=== PATIENT | male | born 1970 | race Caucasian/White ===

== ENCOUNTER 2018-05-18 02:19 | Observation (INO) ==
[2018-05-18] MEDS ORDERED: Acetaminophen 325 MG Tablet PO PRN ×2 (05:30→09:17)
[2018-05-18] MEDS ORDERED: Naloxone Inj 0.4 MG/ML Vial IV.PUSH PRN (05:30)
[2018-05-18] MEDS ORDERED: Vancomycin Consult Pharmacy OTHER PRN (05:30)
[2018-05-18] MEDS ORDERED: Bisacodyl 10 MG Supp RECTAL PRN (05:30)
[2018-05-18] MEDS ORDERED: Dextrose 50% in Water 50 ML Vial IV.PUSH PRN (05:34)
[2018-05-18] MEDS: Insulin NovoLOG Aspart Correctional Sugar Inj SQ SCH ×4 (08:12→20:54)
[2018-05-18] MEDS: Senna/Docusate Sodium 8.6/50 MG Tablet PO SCH ×2 (08:13→20:55)
[2018-05-18] MEDS: Heparin - SQ 10,000 UNITS/ML Vial SQ SCH ×3 (08:14→21:05)
[2018-05-18] MEDS: Piperacil/Tazo 3.375 GM Premix 50 ML IV.SIG SCH ×4 (08:15→23:17)
--- NOTE | 2018-05-18 09:43 | P.HPIM ---
History of Present Illness Primary Care Physician: No Primary Care Physician Chief Complaint: Scrotum swelling and pain History of Present Illness: 48-year-old white male with a history of GERD presents to the emergency room with a one-week history of a painful scrotal lump which he had attributed to a ingrown hair in the posterior area which has progressed and become more swollen over the past 12 hours leading him to come to emergency room for further evaluation. He also reports developing fever early this morning. He reports a few days ago he was attempting to push and express some fluid from the area however was unable to get any out. He denies any dysuria urinary frequency urgency nor any penile discharge. He does report he had similar episode a few years back which resolved on its own. Diagnosis (1) Cellulitis of scrotum: Review of Systems Constitutional: Reports as per HPI, Denies anorexia, Denies body ache(s), Reports chills, Reports fever(s), Denies headache(s) and Denies poor appetite Eyes: Denies blurry vision, Denies change in vision and Denies eye pain Ears, Nose, Mouth, and Throat: Denies abnormal hearing, Denies headache(s), Denies mouth pain, Denies nasal congestion, Denies neck pain and Denies sore throat Cardiovascular: Denies chest pain, Denies pedal edema, Denies palpitations and Denies dyspnea Respiratory: Denies cough and Denies dyspnea Gastrointestinal: Denies abdominal pain, Reports constipation, Denies loose stools, Denies nausea and Denies vomiting Genitourinary: Denies difficulty urinating, Denies genital lesions, Denies genital pain, Denies dysuria, Denies painful ejaculations, Denies penile discharge, Reports scrotal swelling, Reports testicular pain, Denies urinary frequency and Denies urinary urgency Musculoskeletal: Denies back pain, Denies myalgias, Denies arthralgias, Denies neck pain and Denies numbness Skin/Breast: Denies new lesions and Denies rash Neurologic: Denies abnormal hearing, Denies headache(s), Denies focal weakness, Denies memory loss and Denies numbness Psychiatric: Denies anxiety, Denies depression and Denies memory loss Endocrine: Denies cold intolerance, Denies heat intolerance and Denies palpitations Hematologic/Lymphatic: Denies easy bleeding and Denies easy bruising PMFSH History History Provided By: Patient Medical History Medical History GERD (gastroesophageal reflux disease) (Chronic) Surgical History Surgical History No history of previous surgery (Acute) Family History Family History Father Lung cancer Mother Lung cancer Social History Social History Substance History: Active Abuse Second Hand Smoke Exposure: No Smoking Status: Never smoker How Often Do You Have a Drink Containing Alcohol: 2 to 4 times a month Medications and Allergies Allergies Allergy/AdvReac Type Severity Reaction Status Date / Time No Known Allergies Allergy Verified 05/18/18 02:44 Home Medications Medication Instructions Recorded Confirmed Type omeprazole 20 mg PO DAILY 05/18/18 05/18/18 History Active Medications: Active Medications Acetaminophen (Tylenol) 650 mg PO Q4H PRN PRN Reason: headache/fever/pain1-4 Hydrocodone Bitart/Acetaminophen (Freeland 5/325) 1 tab PO Q6H PRN PRN Reason: pain scale 5 to 10 Last Admin: 05/18/18 08:15 Dose: 1 tab Al Hydroxide/Mg Hydroxide (Milk Of Magnesia Liq) 30 ml PO Q12H PRN PRN Reason: Mild Constipation Bisacodyl (Dulcolax Supp) 10 mg RECTAL DAILY PRN PRN Reason: SEVERE CONSITIPATION Dextrose (D50w Vial) 50 ml IV.PUSH UNSCH PRN PRN Reason: PER HYPOGLYCEMIA PROTOCOL Glucagon (Glucagon Inj) 1 mg OTHER PRN PRN PRN Reason: for Hypoglycemia Protocol Heparin Sodium (Porcine) (Heparin Inj) 5,000 units SQ Q8H ERIN Last Admin: 05/18/18 08:14 Dose: Not Given Piperacillin/Tazobactam/Dextrose (Zosyn 3.375 Gm Premix) 50 mls @ 100 mls/hr IV.SIG Q6H ERIN Last Admin: 05/18/18 08:15 Dose: Not Given Vancomycin HCl 1,500 mg/ (Sodium Chloride) 515 mls @ 250 mls/hr IV.SIG Q12H ERIN Insulin Aspart (Novolog Insulin Correctional Sugar Inj) 0 unit SQ ACHS ERIN; Protocol Last Admin: 05/18/18 08:12 Dose: 1 unit Lactulose (Lactulose Liq) 30 ml PO DAILY PRN PRN Reason: SEVERE CONSITIPATION Miscellaneous Information (Misc Pharmacy Ordered Lab Info) 0 each OTHER ONCE ONE Stop: 05/19/18 10:46 Morphine Sulfate (Morphine Inj) 2 mg IV.PUSH Q3H PRN PRN Reason: BREAKTHROUGH PAIN Naloxone HCl (Narcan Inj) 0.4 mg IV.PUSH UNSCH PRN PRN Reason: SEE LABEL COMMENTS Ondansetron HCl (Zofran Inj) 4 mg IV.PUSH Q6H PRN PRN Reason: NAUSEA OR VOMITING Pharmacy Profile Note (Vancomycin Consult Pharmacy) 1 each OTHER UNSCH PRN PRN Reason: Pharmacy to dose Senna/Docusate Sodium (Minerva-Colace) 1 tab PO BID ERIN Last Admin: 05/18/18 08:13 Dose: 1 tab Sennosides (Senokot) 17.2 mg PO Q12H PRN PRN Reason: Moderate Constipation Sodium Chloride (Ns Flush) 2 ml IV.FLUSH BID ERIN Sodium Chloride (Ns Flush) 2 ml IV.FLUSH PRN PRN PRN Reason: FLUSH AFTER USING IV ACCESS Physical Exam Vital signs: Intake & Output 05/16/18 05/17/18 05/18/18 05/19/18 06:59 06:59 06:59 06:59 Weight 125.1 kg Narrative: GENERAL: Well-nourished well-developed white male in no acute distress SKIN: Warm and dry. HEAD: Atraumatic. Normocephalic. EYES: Pupils equal and round. No scleral icterus. No injection or drainage. ENT: No nasal bleeding or discharge. Mucous membranes pink and moist. NECK: Trachea midline. No JVD. CARDIOVASCULAR: Regular rate and rhythm. RESPIRATORY: No accessory muscle use. Clear to auscultation. Breath sounds equal bilaterally. GASTROINTESTINAL: Abdomen soft, non-tender, nondistended. Hepatic and splenic margins not palpable. GENITOURINARY: Circumcised penis, scrotum swelling, left greater than the right , palpable painful elevated mass located mid posterior base aspect with no active drainage approximately 1 cm; redness surrounding the left lower posterior base area of the scrotum. MUSCULOSKELETAL: Extremities without clubbing, cyanosis, or edema. No obvious deformities. NEUROLOGICAL: Awake and alert. No obvious cranial nerve deficits. Motor grossly within normal limits. Five out of 5 muscle strength in the arms and legs. Normal speech. PSYCHIATRIC: Appropriate mood and affect; insight and judgment normal. Caprini VTE Risk Assessment Caprini VTE Risk Assessment: No/Low Risk (score <= 1) Caprini Risk Assessment Model: Point Value = 1 Point Value = 2 Point Value = 3 Point Value = 5 Age 41-60 Minor surgery BMI > 25 kg/m2 Swollen legs Varicose veins or History of unexplained or recurrent spontaneous Oral contraceptives or hormone replacement Sepsis (< 1 month) Serious lung disease, including pneumonia (< 1 month) Abnormal pulmonary function Acute myocardial infarction Congestive heart failure (< 1 month) History of inflammatory bowel disease Medical patient at bed rest Age 61-74 Arthroscopic surgery Major open surgery (> 45 min) Laparoscopic surgery (> 45 min) Malignancy Confined to bed (> 72 hours) Immobilizing plaster cast Central venous access Age >= 75 History of VTE Family history of VTE Factor V Leiden Prothrombin [id number] Lupus anticoagulant Anticardiolipin antibodies Elevated serum homocysteine Heparin-induced thrombocytopenia Other congenital or acquired thrombophilia Stroke (< 1 month) Elective arthroplasty Hip, pelvis, or leg fracture Acute spinal cord injury (< 1 month) Prophylaxis Regimen: Total Risk Factor Score Risk Level Prophylaxis Regimen 0-1 Low Early ambulation 2 Moderate Order ONE of the following: *Sequential Compression Device (SCD) *Heparin 5000 units SQ BID 3-4 Higher Order ONE of the following medications: *Heparin 5000 units SQ TID *Enoxaparin/Lovenox 40 mg SQ daily (WT < 150 kg, CrCl > 30 mL/min) *Enoxaparin/Lovenox 30 mg SQ daily (WT < 150 kg, CrCl > 10-29 mL/min) *Enoxaparin/Lovenox 30 mg SQ BID (WT < 150 kg, CrCl > 30 mL/min) AND/OR *Sequential Compression Device (SCD) 5 or more Highest Order ONE of the following medications: *Heparin 5000 units SQ TID (Preferred with Epidurals) *Enoxaparin/Lovenox 40 mg SQ daily (WT < 150 kg, CrCl > 30 mL/min) *Enoxaparin/Lovenox 30 mg SQ daily (WT < 150 kg, CrCl > 10-29 mL/min) *Enoxaparin/Lovenox 30 mg SQ BID (WT < 150 kg, CrCl > 30 mL/min) AND *Sequential Compression Device (SCD) Assessment and Plan (1) Cellulitis of scrotum: Code(s): N49.2 - Inflammatory disorders of scrotum Status: Acute Plan 48-year-old white male with history of GERD presents to the emergency room with scrotal swelling and pain Sepsis present on admission with presenting leukocytosis, tachycardia and fever with source likely scrotum cellulitis rule out underlying developing abscess. CT abdomen pelvis show inflammatory infectious process involving the scrotum without fluid collection. Will obtain a scrotum/testicle ultrasound Urology consultation Continue with IV Zosyn, vancomycin, add doxycycline to the area. Follow-up with blood cultures. Urine cultures currently pending. Presenting hyperglycemiarule out early onset of diabetes mellitus, check hemoglobin A1c, continue Accu-Cheks with sliding scale insulin. History of GERDresume home PPI Elevated blood pressure on presentation of 207/105rule out underlying hypertension, start lisinopril, IV Vasotec as needed. Continue to monitor blood pressure. DVT prophylaxisno mechanical or pharmaceutical VTE prophalaxis administered due to patient's low risk assessment of VTE. Encouraged ambulation.
[2018-05-18] MEDS: Lisinopril 5 MG Tablet PO SCH (10:34)
[2018-05-18] MEDS: Pantoprazole Sodium 20 MG DR Tablet PO SCH (10:35)
[2018-05-18] MEDS: Vancomycin Inj 1,500 MG in Sodium Chlor 0.9% Inj 500 ML IV.SIG SCH ×2 (10:36→23:17)
--- NOTE | 2018-05-18 10:56 | US ---
EXAM DATE: 05/18/2018 10:44 AM EST AGE/SEX: 48 years / Male INDICATIONS: Testicular pain and swelling. CLINICAL DATA: This is the patient's initial encounter. Patient reports that signs and symptoms have been present for 1 week and indicates a pain score of 3/10. MEDICAL/SURGICAL HISTORY: Gastroesophageal reflux disease. None. COMPARISON: No prior exams available for comparison. MEASUREMENTS: Right Testicle:__4.7 x 3.1 x 2.2 cm Left Testicle:__4.4 x 3.3 x 2.2 cm FINDINGS: RIGHT: Testicle: Homogeneous echotexture without intra or extratesticular mass. Blood flow is symmetric and within normal limits. Epididymis: Within normal limits. Hydrocele: No hydrocele. Varicocele: No evidence of varicocele. LEFT: Testicle: Homogeneous echotexture without intra or extratesticular mass. Blood flow is symmetric and within normal limits. Epididymis: Within normal limits. Hydrocele: Small hydrocele present. Varicocele: No evidence of varicocele. Scrotum: Diffuse thickening of scrotal skin. In the left perineal region, there is a palpable area. This corresponds to a 2.0 x 3.8 x 1.6 cm heter ogeneous complex area. This appears to communicates with the skin CONCLUSION: 1. The testicles appear normal. 2. Scrotal swelling. 3. 3.8 cm complex area seen in the left perineal region corresponding to the palpable area. This tara ears to communicate with the skin. An inflamed skin appendage such as a sebaceous cyst or hair follic le could have this appearance. A hematoma or abscess could have this appearance. This should be corre lated clinically. Electronically signed by: Tomy Perez MD 05/18/2018 10:55 AM EST
[2018-05-18] MEDS: Morphine Inj 4 MG/ML Vial IV.PUSH PRN ×2 (13:37→20:55)
[2018-05-19] MEDS: Piperacil/Tazo 3.375 GM Premix 50 ML IV.SIG SCH ×3 (05:51→18:34)
[2018-05-19] MEDS: Heparin - SQ 10,000 UNITS/ML Vial SQ SCH ×3 (05:51→21:59)
[2018-05-19] MEDS: Morphine Inj 4 MG/ML Vial IV.PUSH PRN ×2 (05:55→16:19)
[2018-05-19 07:00] LABS: Baso % (Auto) 0.3 % (0.0-2.0); Eos # (Auto) 0.2 th/mm3 (0.0-0.4); Eos % (Auto) 1.5 % (0.0-4.0); Hematocrit 42.1 % (39.0-51.0); Hemoglobin 14.5 gm/dL (13.0-17.0); Lymph # (Auto) 1.7 th/mm3 (1.0-4.8); Lymph % (Auto) 11.3 % (9.0-44.0); Mean Corpuscular HGB Conc 34.4 % (32.0-36.0); Mean Corpuscular Hemoglobin 30.4 pg (27.0-34.0); Mean Corpuscular Volume 88.4 fL (80.0-100.0); Mean Platelet Volume 8.4 fL (7.0-11.0); Mono # (Auto) 0.9 th/mm3 (0.0-0.9); Mono % (Auto) 6.3 % (0.0-8.0); Neut # (Auto) 12.1 th/mm3 (1.8-7.7); Neut % (Auto) 80.6 % (16.0-70.0); Platelet Count 237 th/mm3 (150-450); Red Blood Count 4.77 mil/mm3 (4.50-5.90); Red Cell Distribution Width 12.5 % (11.6-17.2); White Blood Count 14.9 th/mm3 (4.0-11.0)
[2018-05-19 07:35] LABS: Chloride 105 meq/L (98-107); Potassium 3.5 meq/L (3.5-5.1); Sodium 138 meq/L (136-145)
[2018-05-19 07:38] LABS: Calcium 8.5 mg/dL (8.5-10.1)
[2018-05-19 07:39] LABS: Anion Gap 8 meq/L (5-15); Blood Urea Nitrogen 8 mg/dL (7-18); Carbon Dioxide 24.9 meq/L (21.0-32.0); Glucose,Random 152 mg/dL (74-106)
[2018-05-19 07:42] LABS: Glomerular Filtration Rate Greater Than 89 mL/min (>89)
[2018-05-19] MEDS: Lisinopril 5 MG Tablet PO SCH (08:54)
[2018-05-19] MEDS: Senna/Docusate Sodium 8.6/50 MG Tablet PO SCH ×2 (08:54→21:58)
[2018-05-19] MEDS: Pantoprazole Sodium 20 MG DR Tablet PO SCH (08:54)
[2018-05-19] MEDS: Insulin NovoLOG Aspart Correctional Sugar Inj SQ SCH ×4 (09:01→21:53)
--- NOTE | 2018-05-19 09:50 | MB ---
cc: Memo Swainn Yani DATE: 05/19/2018 HISTORY OF PRESENT ILLNESS: Mr. Frost is a 48-year-old male who presented with scrotal swelling and induration over the past 2 days. The patient attempted to express fluid from the area in the perineal region where he noticed a small pimple. After attempt to do this, the scrotum swelled up considerably and he came to the emergency room. He states he did have a low-grade fever at the time of presentation. He denies any history of diabetes. He states he had a history of this occurring 5 years ago, which drained spontaneously and healed on its own. PAST MEDICAL HISTORY: Noted for GERD. PAST SURGICAL HISTORY: Denies any surgical history. SOCIAL HISTORY: Drinks beer on occasion. Denies drinking or using drugs. FAMILY HISTORY: Noted for lung cancer. REVIEW OF SYSTEMS: Notes scrotal swelling and edema. Low-grade temperature. Denies chest pain, shortness of breath, abdominal pain. No voiding complaints. No gait disturbances. The remaining review of systems were reviewed and were negative. PHYSICAL EXAMINATION: VITAL SIGNS: Temperature today 98.6, heart rate 88, respiratory rate 18, 158/79 is his blood pressure. GENERAL: He is an obese 48-year-old male in no acute distress. HEENT: Normocephalic, atraumatic. Pupils equal, round, regular and reactive to light. Extraocular movements intact. NECK: Supple. HEART: Regular rate and rhythm. LUNGS: Clear. ABDOMEN: Soft, nontender, nondistended. GENITOURINARY: Swollen scrotum with area of induration near the perineal area. No fluctuance is identified. EXTREMITIES: Show no cyanosis, clubbing or edema. NEUROLOGIC: Cranial nerves 2-12 are intact. LABORATORY DATA: White count 14.9, hemoglobin 14.5, hematocrit 42.1, platelet count of 237. Sodium 138, potassium 3.5, chloride 105, CO2 of 24.9, BUN of 8, creatinine 0.7, glucose of 152. Scrotal ultrasound shows scrotal swelling. Testes are normal. A 3.8 cm complex area seen in the left perineal region, corresponding to the palpable area. This appears to communicate with the skin. Inflamed skin appendage such as a sebaceous cyst or hair follicle could have this appearance. Hematoma or abscess could have this appearance. This should be correlated clinically. ASSESSMENT AND PLAN: A 48-year-old male with scrotal cellulitis and induration without definitive abscess. Recommend sitz baths with Epsom salts t.i.d. Continue IV Zosyn. Recommend evaluation for possible diabetes given elevated glucose during this admission. Can follow up as an outpatient in the office in a few weeks. Thank you for the consult and allowing me to participate in the care of this patient. Dae Swain DO SWT/sv , 08:32 AM , 08:38 AM
[2018-05-19] MEDS ORDERED: Pharmacy Ordered Lab Info OTHER ONE (10:45)
[2018-05-19] MEDS: Vancomycin Inj 1,500 MG in Sodium Chlor 0.9% Inj 500 ML IV.SIG SCH (11:38)
--- NOTE | 2018-05-19 13:39 | P.PNIM ---
Subjective Interval history: 48-year-old male who is seen examined today for follow-up on perineal/ scrotal abscess. Patient states that it has not gotten any better. He believes it is only gotten worse. Patient did have on speaker phone while speaking to him in the room. They are both concerned and would like to know exactly what the plan is, exact duration of him being in the hospital and when he can come home. I did spend extensive period of time discussing with the patient and the about his condition, plan of care, treatment plan, prognosis and best scenario for discharge planning. Patient does have uncontrolled hypertension still. Patient remains afebrile. Physical Exam Vital signs: Vital Signs 05/18/18 13:40 05/18/18 18:51 05/18/18 20:00 Temperature 99.1 F 98.7 F 98.7 F Pulse Rate 85 80 81 Respiratory Rate 14 16 17 Blood Pressure 163/81 H 171/81 H 171/91 H Pulse Oximetry 93 L 97 94 L 05/19/18 00:00 05/19/18 08:00 05/19/18 10:45 Temperature 98.6 F Pulse Rate 88 73 Respiratory Rate 18 20 20 Blood Pressure 158/79 H 184/98 H Pulse Oximetry 96 92 L 05/19/18 12:00 Temperature 99 F Pulse Rate 87 Respiratory Rate 20 Blood Pressure 144/78 H Pulse Oximetry 95 Intake & Output 05/18/18 05/19/18 05/19/18 18:59 06:59 18:59 Intake Total 2064 / 2064 665 / 665 Output Total 800 / 800 Balance 2064 -135 / -135 Weight 125.1 kg 127.51 kg Intake: IV 565 / 565 665 / 665 Zosyn 3.375 GM Premix 50 ML @ 50 / 50 150 / 150 100 mls/hr IV.SIG Q6H ERIN Rx#: [id number] Vancomycin Inj 1,500 MG In NS 515 / 515 515 / 515 Inj 500 ML @ 250 mls/hr IV.SIG Q12H ERIN Rx#:[id number] Oral 1500 / 1500 Output: Urine 800 / 800 Other: # Voids 3 Date of Last Bowel Movement 05/18/18 05/18/18 05/18/18 Weight On Admission 125.1 kg Narrative: GENERAL: Well-developed, well-nourished, in no acute distress. alert and orientated HEENT: Head is normocephalic without any lesions or masses noted. Facial features are symmetric. Eyes: Extraocular muscles are intact. Conjunctivae were clear. NECK: Supple without any masses. Trachea midline no deviation. No JVD, CARDIAC: Regular rhythm, regular rate. S1/S2 are heard. No murmurs gallops or rubs. LUNGS: Clear to auscultation bilaterally. No wheeze, rhonchi or rales. No use of accessory muscles on inspiration or expiration. ABDOMEN: Soft, nontender. Nondistended. Bowel sounds heard in all 4 quadrants. No organomegaly or masses. Negative rebound, negative guarding EXTREMITIES: No edema, pulses are equal bilaterally. No cyanosis or clubbing NEUROLOGY: Mood and affect appear appropriate. Cranial nerves II through XII grossly intact. Moving all extremities, speech is clear GENITOURINARY: Patient does have significantly enlarged scrotum. At the point of where the scrotum attaches to the perineum there is a single opening without any obvious exudates or purulence at this time. Results - Labs CBC & Chem 7: 05/19/18 05:25 05/19/18 05:25 Laboratory Results - last 24 hr 05/18/18 05/18/18 05/18/18 15:45 16:22 20:51 CBC w Diff WBC RBC Hgb Hct MCV MCH MCHC RDW Plt Count MPV Neut % (Auto) Lymph % (Auto) Wallace % (Auto) Eos % (Auto) Baso % (Auto) Neut # (Auto) Lymph # (Auto) Wallace # (Auto) Eos # (Auto) Baso # (Auto) WBC Differential Differential Comment Sodium Potassium Chloride Carbon Dioxide Anion Gap BUN Creatinine Estimated GFR POC Glucose 159 H 163 H Random Glucose Lactic Acid 1.4 Calcium 05/19/18 05/19/18 05/19/18 05:25 05:25 11:51 CBC w Diff Auto diff final WBC 14.9 H RBC 4.77 Hgb 14.5 D Hct 42.1 MCV 88.4 MCH 30.4 MCHC 34.4 RDW 12.5 Plt Count 237 MPV 8.4 Neut % (Auto) 80.6 H Lymph % (Auto) 11.3 Wallace % (Auto) 6.3 Eos % (Auto) 1.5 Baso % (Auto) 0.3 Neut # (Auto) 12.1 H Lymph # (Auto) 1.7 Wallace # (Auto) 0.9 Eos # (Auto) 0.2 Baso # (Auto) 0.0 WBC Differential . Differential Comment . Sodium 138 Potassium 3.5 Chloride 105 Carbon Dioxide 24.9 Anion Gap 8 BUN 8 Creatinine 0.77 Estimated GFR Greater than 89 POC Glucose 158 H Random Glucose 152 H Lactic Acid Calcium 8.5 Assessment and Plan - Assessment (1) Cellulitis of scrotum Code(s): N49.2 - Inflammatory disorders of scrotum Status: Inactive - Plan Sepsis, improving -Present on admission with leukocytosis, tachycardia and fever with source likely scrotum cellulitis rule out underlying developing abscess. -CT abdomen pelvis show inflammatory infectious process involving the scrotum without fluid collection. -Scrotal ultrasound showing scrotal swelling. 3.8 cm complex area is seen in the left perineal region. This appears to be communicate with the skin. Multiple etiologies were given to include inflamed skin appendage, sebaceous cyst, hair follicle, hematoma, abscess. Recommend continue to follow clinically -Urology consultation -Urology recommending at this time that nonsurgical treatment to include sitz baths, continue antibiotic treatment, discharge if clinically improved -Continue with IV Zosyn, vancomycin, doxycycline -Blood cultures are negative for 1 day -Continue pain control, scrotal elevation, ice to the area Presenting hyperglycemia Patient does have hemoglobin A1c 6.6 -Accu-Cheks with sliding scale insulin -Consult special education paraeducator Elevated blood pressure on presentation of 207/105 Continue lisinopril 5 mg daily -Vasotec as needed History of GERD resume home PPI DVT prophylaxis no mechanical or pharmaceutical VTE prophalaxis administered due to patient's low risk assessment of VTE. Encouraged ambulation.
[2018-05-19] MEDS: Vancomycin Inj 1,750 MG in Sodium Chlor 0.9% Inj 500 ML IV.SIG SCH (22:02)
[2018-05-20] MEDS: Morphine Inj 4 MG/ML Vial IV.PUSH PRN ×2 (00:21→16:33)
[2018-05-20] MEDS: Piperacil/Tazo 3.375 GM Premix 50 ML IV.SIG SCH ×4 (00:22→17:57)
[2018-05-20] MEDS: Heparin - SQ 10,000 UNITS/ML Vial SQ SCH ×3 (05:10→22:35)
[2018-05-20] MEDS: Insulin NovoLOG Aspart Correctional Sugar Inj SQ SCH ×4 (08:27→22:33)
[2018-05-20] MEDS: Senna/Docusate Sodium 8.6/50 MG Tablet PO SCH ×2 (08:28→21:24)
[2018-05-20] MEDS: Lisinopril 5 MG Tablet PO SCH (08:29)
[2018-05-20] MEDS: Pantoprazole Sodium 20 MG DR Tablet PO SCH (08:29)
--- NOTE | 2018-05-20 10:19 | P.PNIM ---
Subjective Interval history: 48-year-old male who is seen examined today for follow-up on scrotal abscess. Patient states that he did have some active draining from the site last night. He does not feels if the size has improved at all. I did discuss with the patient his elevated blood pressure as well as his hyperglycemia. Notified him of his hemoglobin A1c 6.6. Patient will be seen by community health educator today. Vital signs blood pressure still mildly elevated. Patient remains afebrile. Physical Exam Vital signs: Vital Signs 05/19/18 10:45 05/19/18 12:00 05/19/18 14:25 Temperature 99 F Pulse Rate 87 Respiratory Rate 20 20 20 Blood Pressure 144/78 H Pulse Oximetry 95 05/19/18 16:00 05/19/18 18:33 05/19/18 20:00 Temperature 100.4 F H 98.5 F Pulse Rate 86 85 Respiratory Rate 20 20 20 Blood Pressure 176/87 H 132/63 Pulse Oximetry 96 95 05/20/18 00:00 05/20/18 03:21 05/20/18 08:00 Temperature 96.7 F L 97.1 F L Pulse Rate 81 65 Respiratory Rate 18 15 Blood Pressure 146/74 H 142/90 H Pulse Oximetry 96 97 Intake & Output 05/19/18 05/20/18 05/20/18 18:59 06:59 18:59 Intake Total 2385 / 2385 617.5 / 617.5 Output Total 800 / 800 500 / 500 Balance 1585 / 1585 117.5 / 117.5 Weight 124.8 kg Intake: IV 615 / 615 617.5 / 617.5 Zosyn 3.375 GM Premix 50 ML @ 100 / 100 100 / 100 100 mls/hr IV.SIG Q6H ERIN Rx#: [id number] Vancomycin Inj 1,750 MG In NS 515 / 515 517.5 / 517.5 Inj 500 ML @ 250 mls/hr IV.SIG Q12H ERIN Rx#:[id number] Oral 1770 / 1770 Output: Urine 800 / 800 500 / 500 Other: # Voids 6 1 Date of Last Bowel Movement 05/18/18 05/17/18 05/20/18 Narrative: GENERAL: Well-developed, well-nourished, in no acute distress. alert and orientated HEENT: Head is normocephalic without any lesions or masses noted. Facial features are symmetric. Eyes: Extraocular muscles are intact. Conjunctivae were clear. NECK: Supple without any masses. Trachea midline no deviation. No JVD, CARDIAC: Regular rhythm, regular rate. S1/S2 are heard. No murmurs gallops or rubs. LUNGS: Clear to auscultation bilaterally. No wheeze, rhonchi or rales. No use of accessory muscles on inspiration or expiration. ABDOMEN: Soft, nontender. Nondistended. Bowel sounds heard in all 4 quadrants. No organomegaly or masses. Negative rebound, negative guarding EXTREMITIES: No edema, pulses are equal bilaterally. No cyanosis or clubbing NEUROLOGY: Mood and affect appear appropriate. Cranial nerves II through XII grossly intact. Moving all extremities, speech is clear GENITOURINARY: Patient does have significantly enlarged scrotum, does not appear to have decreased in size. At the point of where the scrotum attaches to the perineum there is an indurated area with single opening without any obvious exudates or purulence at this time. Results - Labs CBC & Chem 7: 05/19/18 05:25 05/19/18 05:25 Laboratory Results - last 24 hr 05/19/18 05/19/18 05/19/18 10:15 11:51 16:44 POC Glucose 158 H 142 H Vancomycin Trough 5.3 05/19/18 05/20/18 21:52 07:43 POC Glucose 144 H 153 H Vancomycin Trough Assessment and Plan - Assessment (1) Cellulitis of scrotum Code(s): N49.2 - Inflammatory disorders of scrotum Status: Inactive - Plan Sepsis, improving -Present on admission with leukocytosis, tachycardia and fever with source likely scrotum cellulitis rule out underlying developing abscess. -CT abdomen pelvis show inflammatory infectious process involving the scrotum without fluid collection. -Scrotal ultrasound showing scrotal swelling. 3.8 cm complex area is seen in the left perineal region. This appears to be communicate with the skin. Multiple etiologies were given to include inflamed skin appendage, sebaceous cyst, hair follicle, hematoma, abscess. Recommend continue to follow clinically -Urology consultation -Urology recommending at this time that nonsurgical treatment to include sitz baths, continue antibiotic treatment, discharge if clinically improved -Continue with IV Zosyn, vancomycin, doxycycline -Blood cultures are negative for 1 day -Continue pain control, scrotal elevation, ice to the area, sitz bath Presenting hyperglycemia Patient does have hemoglobin A1c 6.6 -Accu-Cheks with sliding scale insulin -Consulted community health educator Elevated blood pressure on presentation of 207/105, blood pressure has improved Continue lisinopril 5 mg daily -Vasotec as needed History of GERD resume home PPI DVT prophylaxis no mechanical or pharmaceutical VTE prophalaxis administered due to patient's low risk assessment of VTE. Encouraged ambulation.
[2018-05-20] MEDS: Vancomycin Inj 1,750 MG in Sodium Chlor 0.9% Inj 500 ML IV.SIG SCH ×2 (11:28→22:34)
[2018-05-21] MEDS: Piperacil/Tazo 3.375 GM Premix 50 ML IV.SIG SCH ×5 (01:19→23:16)
[2018-05-21] MEDS: Morphine Inj 4 MG/ML Vial IV.PUSH PRN ×2 (06:19→21:01)
[2018-05-21] MEDS: Heparin - SQ 10,000 UNITS/ML Vial SQ SCH ×3 (06:20→21:01)
[2018-05-21] MEDS: Insulin NovoLOG Aspart Correctional Sugar Inj SQ SCH ×4 (08:55→21:00)
[2018-05-21] MEDS: Senna/Docusate Sodium 8.6/50 MG Tablet PO SCH ×2 (10:06→20:54)
[2018-05-21] MEDS: Lisinopril 5 MG Tablet PO SCH (10:06)
[2018-05-21] MEDS: Pantoprazole Sodium 20 MG DR Tablet PO SCH (10:09)
[2018-05-21] MEDS ORDERED: Pharmacy Ordered Lab Info OTHER ONE (10:45)
--- NOTE | 2018-05-21 11:32 | P.PNIM ---
Subjective Interval history: 48-year-old male who is seen examined today for follow-up on scrotal abscess, hypertension, diabetes. Patient is doing much better. States that has significant improvement. Still having some mild drainage. Patient Physical Exam Vital signs: Vital Signs 05/20/18 12:00 05/20/18 16:00 05/20/18 18:18 Temperature 97.4 F L 97.6 F Pulse Rate 70 74 77 Respiratory Rate 16 16 Blood Pressure 160/85 H 163/91 H 143/77 H Pulse Oximetry 96 95 05/20/18 20:00 05/21/18 00:00 05/21/18 08:00 Temperature 98.0 F 98.4 F 97.4 F L Pulse Rate 81 89 84 Respiratory Rate 18 18 16 Blood Pressure 160/90 H 164/90 H 185/99 H Pulse Oximetry 97 95 97 Intake & Output 05/20/18 05/21/18 05/21/18 18:59 06:59 18:59 Intake Total 1817.5 / 1817.5 250 / 250 317.5 / 317.5 Balance 1817.5 / 1817.5 250 / 250 317.5 / 317.5 Weight 125.2 kg Intake: IV 617.5 / 617.5 250 / 250 317.5 / 317.5 Zosyn 3.375 GM Premix 50 ML @ 100 / 100 50 / 50 100 mls/hr IV.SIG Q6H ERIN Rx#: [id number] Vancomycin Inj 1,750 MG In NS 517.5 / 517.5 200 / 200 317.5 / 317.5 Inj 500 ML @ 250 mls/hr IV.SIG Q12H ERIN Rx#:[id number] Oral 1200 / 1200 Other: # Voids 5 3 Date of Last Bowel Movement 05/20/18 05/20/18 # Bowel Movements 0 Narrative: GENERAL: Well-developed, well-nourished, in no acute distress. alert and orientated HEENT: Head is normocephalic without any lesions or masses noted. Facial features are symmetric. Eyes: Extraocular muscles are intact. Conjunctivae were clear. NECK: Supple without any masses. Trachea midline no deviation. No JVD, CARDIAC: Regular rhythm, regular rate. S1/S2 are heard. No murmurs gallops or rubs. LUNGS: Clear to auscultation bilaterally. No wheeze, rhonchi or rales. No use of accessory muscles on inspiration or expiration. ABDOMEN: Soft, nontender. Nondistended. Bowel sounds heard in all 4 quadrants. No organomegaly or masses. Negative rebound, negative guarding EXTREMITIES: No edema, pulses are equal bilaterally. No cyanosis or clubbing NEUROLOGY: Mood and affect appear appropriate. Cranial nerves II through XII grossly intact. Moving all extremities, speech is clear GENITOURINARY: Scrotum does have significant reduction in size. The indurated area has improved as well. Able to express serosanguineous drainage at this time. Results - Labs CBC & Chem 7: 05/19/18 05:25 05/19/18 05:25 Laboratory Results - last 24 hr 05/20/18 05/20/18 05/20/18 11:43 15:21 22:18 POC Glucose 118 H 164 H 156 H 05/21/18 07:43 POC Glucose 154 H Assessment and Plan - Assessment (1) Cellulitis of scrotum Code(s): N49.2 - Inflammatory disorders of scrotum Status: Inactive - Plan Sepsis, resolved -Present on admission with leukocytosis, tachycardia and fever with source likely scrotum cellulitis rule out underlying developing abscess. -Continue with IV Zosyn, vancomycin, doxycycline -Blood cultures are negative for 3 days Scrotal abscess, improving -CT abdomen pelvis show inflammatory infectious process involving the scrotum without fluid collection. -Scrotal ultrasound showing scrotal swelling. 3.8 cm complex area is seen in the left perineal region. This appears to be communicate with the skin. Multiple etiologies were given to include inflamed skin appendage, sebaceous cyst, hair follicle, hematoma, abscess. Recommend continue to follow clinically -Urology consultation -Urology recommending at this time that nonsurgical treatment to include sitz baths, continue antibiotic treatment, discharge if clinically improved -Continue pain control, scrotal elevation, ice to the area, sitz bath Diabetes type 2, new onset Patient does have hemoglobin A1c 6.6 -Accu-Cheks with sliding scale insulin -Consulted clinical unit educator, who consulted with the patient. Indicating patient should have lifestyle modifications with diet, exercise, weight loss. Should have outpatient follow-up with his primary medical doctor Hypertension, new onset Increase to lisinopril 10 mg twice daily -Vasotec as needed History of GERD resume home PPI DVT prophylaxis no mechanical or pharmaceutical VTE prophalaxis administered due to patient's low risk assessment of VTE. Encouraged ambulation.
[2018-05-21] MEDS ORDERED: Lisinopril 5 MG Tablet PO ONE (11:35)
[2018-05-21 11:53] LABS: Hemoglobin 15.6 gm/dL (13.0-17.0); Mean Corpuscular HGB Conc 33.8 % (32.0-36.0); Mean Corpuscular Hemoglobin 29.9 pg (27.0-34.0); Mean Corpuscular Volume 88.3 fL (80.0-100.0); Mean Platelet Volume 8.4 fL (7.0-11.0); Platelet Count 330 th/mm3 (150-450); Red Blood Count 5.21 mil/mm3 (4.50-5.90); Red Cell Distribution Width 12.4 % (11.6-17.2); White Blood Count 9.6 th/mm3 (4.0-11.0)
[2018-05-21] MEDS: Vancomycin Inj 1,750 MG in Sodium Chlor 0.9% Inj 500 ML IV.SIG SCH ×2 (11:55→23:16)
[2018-05-21] MEDS: amLODIPine 5 MG Tablet PO SCH (17:46)
[2018-05-21] MEDS: Lisinopril 10 MG Tablet PO SCH (20:54)
[2018-05-22] MEDS: Heparin - SQ 10,000 UNITS/ML Vial SQ SCH (05:45)
[2018-05-22] MEDS: Piperacil/Tazo 3.375 GM Premix 50 ML IV.SIG SCH (05:45)
[2018-05-22] MEDS: Senna/Docusate Sodium 8.6/50 MG Tablet PO SCH (08:12)
[2018-05-22] MEDS: Lisinopril 10 MG Tablet PO SCH (08:12)
[2018-05-22] MEDS: Pantoprazole Sodium 20 MG DR Tablet PO SCH (08:13)
[2018-05-22] MEDS: amLODIPine 5 MG Tablet PO SCH (08:13)
[2018-05-22] MEDS: Insulin NovoLOG Aspart Correctional Sugar Inj SQ SCH ×2 (08:14→11:38)
--- NOTE | 2018-05-22 08:22 | P.DS ---
Date of admission: 05/18/18 08:06 Primary care physician: No Primary Care Physician Attending physician on discharge: Cristal Orta Anticipated date of discharge: 05/22/18 Brief History from admission: 48-year-old white male with a history of GERD presents to the emergency room with a one-week history of a painful scrotal lump which he had attributed to a ingrown hair in the posterior area which has progressed and become more swollen over the past 12 hours leading him to come to emergency room for further evaluation. He also reports developing fever early this morning. He reports a few days ago he was attempting to push and express some fluid from the area however was unable to get any out. He denies any dysuria urinary frequency urgency nor any penile discharge. He does report he had similar episode a few years back which resolved on its own. DS: Diagnosis - Discharge Diagnosis (1) Cellulitis of scrotum Status: Inactive DS: Medications - Discharge Medications Prescriptions: amlodipine [Norvasc] 5 mg PO DAILY #30 tab doxycycline hyclate 100 mg PO Q12HR #20 tab hydrocodone-acetaminophen 1 tab PO Q6H PRN #12 tab PRN Reason: Acute Pain lisinopril 10 mg PO BID #60 tab sulfamethoxazole-trimethoprim [Bactrim DS] 1 tab PO BID #20 tab DS: Summary Hospital Course: 48-year-old male who originally presented to the hospital because of swollen scrotum and the wound. Apparently the patient 12 hours prior to coming emergency department noticed like a pimple down in his perineal area and then it progressively got worse to have significant swelling of his scrotum, erythema. Patient came to the hospital and was found to have cellulitis of the scrotum. Patient was admitted to hospital with empirical antibiotics to include vancomycin, Zosyn, doxycycline. Patient had further ultrasound done of his scrotum was found to have a fluid collection and abscess formation. Urology was consulted who evaluated the patient and recommended nonsurgical treatment with antibiotics. The area did continue to drain during his stay in the hospital. While he was on antibiotics, scrotal elevation, icing the area his improved significantly. The indurated area has reduced nicely. Only minimal serosanguineous drainage at this time. Patient responded to treatment well. However during the patient's stay he was found to have hyperglycemia. Hemoglobin A1c was performed which showed a 6.6. Patient was on Accu-Cheks with sliding scale insulin. medical educator was consulted who did spend an excess amount of time with the patient and discussed behavioral modifications. Given the patient's hemoglobin 6.6. Patient is going to do lifestyle changes with diet, exercise, calorie counting. It was recommended that the patient follow-up with his primary doctor for continued management of new onset diabetes. Patient's blood pressure was also elevated during his stay in the hospital which could be related to pain, however patient did have systolic blood pressures greater than 180 during his stay in the hospital. Patient was started on lisinopril and subsequently adding amlodipine for blood pressure management. Blood pressure control was achieved. It was highly recommended to the patient that he follow-up with his primary care doctor with the new onset diabetes, new onset hypertension and for continued blood pressure management. Patient was counseled on lifestyle modifications, monitoring of his blood pressure on a regular basis. Prescription for glucometer was provided. Patient clinically stable at this time. Discussed with urologist who recommended that the patient can be discharged home on Bactrim. Will plan discharge accordingly. - Time Spent with Patient Total time spent providing and/or coordinating discharge services: Greater than 30 minutes - Quality: VTE Deep Vein Thrombosis/Pulmonary Embolism Present on Admission: No Exam Vital signs: Vital Signs 05/21/18 12:00 05/21/18 16:00 05/21/18 20:00 Temperature 97.0 F L 96.4 F L 98.2 F Pulse Rate 86 65 80 Respiratory Rate 16 17 20 Blood Pressure 180/102 H 173/94 H 167/88 H Pulse Oximetry 97 97 95 05/22/18 00:00 Temperature 97.8 F Pulse Rate 73 Respiratory Rate 20 Blood Pressure 161/86 H Pulse Oximetry 95 Intake & Output 05/21/18 05/22/18 05/22/18 18:59 06:59 18:59 Intake Total 1895.0 / 1895.0 1047.5 / 1047.5 Balance 1895.0 / 1895.0 1047.5 / 1047.5 Weight 125.5 kg Intake: IV 935.0 / 935.0 567.5 / 567.5 Zosyn 3.375 GM Premix 50 ML @ 100 / 100 50 / 50 100 mls/hr IV.SIG Q6H ERIN Rx#: [id number] Vancomycin Inj 1,750 MG In NS 835.0 / 835.0 517.5 / 517.5 Inj 500 ML @ 250 mls/hr IV.SIG Q12H ERIN Rx#:[id number] Oral 960 / 960 480 / 480 Other: # Voids 5 3 Date of Last Bowel Movement 05/20/18 # Bowel Movements 0 1 Narrative: GENERAL: Well-developed, well-nourished, in no acute distress. alert and orientated HEENT: Head is normocephalic without any lesions or masses noted. Facial features are symmetric. Eyes: Extraocular muscles are intact. Conjunctivae were clear. NECK: Supple without any masses. Trachea midline no deviation. No JVD, CARDIAC: Regular rhythm, regular rate. S1/S2 are heard. No murmurs gallops or rubs. LUNGS: Clear to auscultation bilaterally. No wheeze, rhonchi or rales. No use of accessory muscles on inspiration or expiration. ABDOMEN: Soft, nontender. Nondistended. Bowel sounds heard in all 4 quadrants. No organomegaly or masses. Negative rebound, negative guarding EXTREMITIES: No edema, pulses are equal bilaterally. No cyanosis or clubbing NEUROLOGY: Mood and affect appear appropriate. Cranial nerves II through XII grossly intact. Moving all extremities, speech is clear GENITOURINARY: Scrotum does have significant reduction in size. The indurated area has improved as well. Able to express small amount serosanguineous drainage Results Procedures completed during hospitalization: None Labs on day of discharge: Labs from last 24 hours 05/22/18 05/21/18 05/21/18 07:35 20:53 16:04 WBC RBC Hgb Hct MCV MCH MCHC RDW Plt Count MPV POC Glucose 154 H 167 H 208 H Vancomycin Trough 05/21/18 05/21/18 05/21/18 11:23 09:50 09:45 WBC 9.6 RBC 5.21 Hgb 15.6 Hct 46.0 MCV 88.3 MCH 29.9 MCHC 33.8 RDW 12.4 Plt Count 330 D MPV 8.4 POC Glucose 169 H Vancomycin Trough 8.9 - Impressions ITS Impressions Scrotum Ultrasound 05/18/18 00:00 CONCLUSION: 1. The testicles appear normal. 2. Scrotal swelling. 3. 3.8 cm complex area seen in the left perineal region corresponding to the palpable area. This appears to communicate with the skin. An inflamed skin appendage such as a sebaceous cyst or hair follicle could have this appearance. A hematoma or abscess could have this appearance. This should be correlated clinically. Discharge Plan - Discharge Disposition Patient Disposition: 01 Discharge Home - Discharge Condition Condition: Stable - Discharge Order Discharge Orders: Discharge Order (Routine); Ordered 05/22/18 Ordered By: Tolu Lawson - Discharge Details Anticipated Discharge Date: 05/21/18 Discharge Comment: Okay to discharge if systolic blood pressure below 165 - Physicians Team Primary Care Provider: Primary Care Tracey Contreras Attending Provider: Cristal Orta Other Providers: Dae Swain DO - Rxs /Orders / Referrals /Forms Prescriptions: New amlodipine [Norvasc] 5 mg Tablet 5 mg PO DAILY Qty: 30 RF: 0 doxycycline hyclate 100 mg Tablet 100 mg PO Q12HR Qty: 20 RF: 0 hydrocodone-acetaminophen 5-325 mg Tablet 1 tab PO Q6H PRN (Reason: Acute Pain) Qty: 12 RF: 0 lisinopril 10 mg Tablet 10 mg PO BID Qty: 60 RF: 0 sulfamethoxazole-trimethoprim [Bactrim DS] 800-160 mg Tablet 1 tab PO BID Qty: 20 RF: 0 No Action No Known Home Medications Referrals: Primary Care Tracey Contreras [Primary Care Provider] - See Instructions Dae Swain DO [UROLOGY] - See Instructions (Follow-up with urology next week) - Discharge Instructions Patient Printed Instructions: Foot Care for People with Diabetes (DC), Type 2 Diabetes in Adults (DC), Basic Carbohydrate Counting (DC), Managing Diabetes During Sick Days (DC) - Post Discharge Care Plan Care Plan Goals: Your Health Problems: Goals to Promote Your Health: * To prevent worsening of your condition * To maintain your health at the optimal level Directions to Meet Your Goals: * Take your medications as prescribed * Follow your dietary instruction * Follow activity as directed * Keep your appointments as scheduled * Take your immunizations and boosters as scheduled * If your symptoms worsen call your PCP * If no PCP go to Urgent Care or Emergency Room Smoking is dangerous to your health. Avoid second hand smoke. You may reach the 24-hour crisis hotline for domestic abuse at .
[2018-05-22] MEDS: Vancomycin Inj 1,750 MG in Sodium Chlor 0.9% Inj 500 ML IV.SIG SCH (11:24)
[2018-05-25] MEDS ORDERED: Pharmacy Ordered Lab Info OTHER ONE (10:45)
== END 2018-05-22 11:54 | disposition home or self-care (01) ==
LOC: PH3 02:19 → PHEDDLT 02:19
PROVIDERS: ADMIT Internal Medicine; ATTEND Internal Medicine